=== PATIENT | female | born 1960 | race Caucasian/White ===

== ENCOUNTER 2016-08-29 07:21 | Emergency (ER) | payer BC ==
[2016-08-29 07:35] VITALS: BP 127/69
--- NOTE | 2016-08-29 08:00 | UC ---
Respiratory Complaint HPI - HPI Summary HPI Summary: The patient comes in today for: 1. Cough, body aches, Onset: One week ago. Palliative/provocative: Robitussin and ibuprofen helps. Quality: Dry, raspy. Region: Lungs, Severity: Sore throat, ear pain--6/10 Time: Constant. Associated symptoms: Fevers: 100. Rhinitis: Green material: Upper tooth pain: None. Sinus pressure: Present. Chest pain: None Dyspnea: Present-and with some wheezing. Dyspnea is present with exertion-- not now. * - History of Current Complaint Chief Complaint: UCRespiratory Stated Complaint: CONGESTION/EAR PAIN Time Seen by Provider: 08/29/16 07:51 Hx Obtained From: Patient - Allergies/Home Medications Allergies/Adverse Reactions: Allergies Allergy/AdvReac Type Severity Reaction Status Date / Time No Known Allergies Allergy Verified 08/29/16 07:29 Home Medications: Home Medications Ibuprofen TAB* [Advil TAB*] 400 mg PO Q6H PRN 08/29/16 [History Confirmed ] guaiFENesin LIQ* [Robitussin*] 10 ml PO Q4H PRN 08/29/16 [History Confirmed 10/10] PMH/Surg Hx/FS Hx/Imm Hx Previously Healthy: Yes Endocrine History Of: Denies: Diabetes, Thyroid Disease, Hyperthyroidism, Hypothyroidism, Dyslipidemia Cardiovascular History Of: Denies: Cardiac Disorders, Hypertension, Pacemaker/ICD, Myocardial Infarction , Congestive Heart Failure, Atrial Fibrillation, Deep Vein Thrombosis, Bleeding Disorders Respiratory History Of: Reports: Asthma - She has used inhalers before. Denies: COPD, Bronchitis, Pneumonia, Pulmonary Embolism GI/ History Of: Denies: Gastroesophageal Reflux, Ulcer, Gastrointestinal Bleed, Gall Bladder Disease, Kidney Stones, Diverticulitis, Renal Disease, Urosepsis Neurological History Of: Denies: TIA, CVA, Dementia, Seizures, Migraine Psychological History Of: Denies: Anxiety, Depression, Bipolar Disorder, Schizophrenia, Post Traumatic Stress Disorder Cancer History Of: Denies: Lung Cancer, Colorectal Cancer, Breast Cancer, Prostate Cancer, Cervical Cancer Other History Of: Negative For: HIV, Hepatitis B, Hepatitis C, Anticoagulant Therapy - Surgical History Surgical History: Yes Surgery Procedure, Year, and Place: Xs2 - Rt SHOULDER SURG. TUBAL LIGATION. CARPAL TUNNEL - Rt. Rt FOOT- FX & NERVE DAMAGE. BREAST IMPLANTS - Family History Known Family History: Negative: Cardiac Disease, Hypertension - Social History Occupation: Employed Full-time Alcohol Use: Occasionally Substance Use Type: None Smoking Status (MU): Former Smoker Type: Cigarettes Amount Used/How Often: 1 PACK PER WEEK Length of Time of Smoking/Using Tobacco: 20 Have You Smoked in the Last Year: Yes Household Exposure Type: Cigarettes - Immunization History Most Recent Influenza Vaccination: FALL 2015 Review of Systems Constitutional: Negative Skin: Negative Eyes: Negative ENT: Nasal Discharge Respiratory: Cough Cardiovascular: Negative Gastrointestinal: Negative Genitourinary: Negative All Other Systems Reviewed And Are Negative: Yes Physical Exam Triage Information Reviewed: Yes Appearance: Well-Appearing, No Pain Distress, Well-Nourished Vital Signs: Initial Vital Signs Temp 97.2 F 08/29/16 07:30 Pulse 62 08/29/16 07:30 Resp 18 08/29/16 07:30 BP 127/69 08/29/16 07:30 Pulse Ox 100 08/29/16 07:30 Vital Signs Reviewed: Yes Eyes: Positive: Conjunctiva Clear. Negative: Discharge ENT: Positive: Hearing grossly normal. Negative: Pharyngeal erythema, Nasal congestion, Nasal drainage, TM bulging, TM dull, TM red, Tonsillar swelling, Tonsillar exudate Dental: Negative: Gross Decay/Caries @, Dental Fracture @ Neck: Positive: Supple, Nontender, No Lymphadenopathy. Negative: Nuchal Rigidity Respiratory: Positive: Chest non-tender, Lungs clear - Patient does not take deep breaths as instructed., No respiratory distress, No accessory muscle use. Negative: Crackles, Wheezing Cardiovascular: Positive: RRR, No Murmur Abdomen Description: Positive: Nontender, No Organomegaly, Soft. Negative: Distended, Guarding Musculoskeletal: Positive: Strength Intact, ROM Intact Neurological: Positive: Alert, Muscle Tone Normal Psychological: Positive: Age Appropriate Behavior, Consolable Skin: Negative: rashes, breakdown UC Diagnostic Evaluation - Laboratory O2 Sat by Pulse Oximetry: 100 Respiratory Course/Dx - Differential Dx/Diagnosis Differential Diagnosis/HQI/PQRI: Bronchitis, Laryngitis, Sinusitis Provider Diagnoses: Bronchitis. Sinusitis Discharge - Discharge Plan Condition: Stable Disposition: HOME Patient Education Materials: Sinusitis (ED), Acute Bronchitis (ED) Referrals: Alicia Yun MD [Primary Care Provider] - 1 Week (Please see your primary care provider in about a week to see how well you are doing. If you get worse, please be seen sooner.)
[2016-08-29] MEDS ORDERED: Amoxicillin/Clavulanate TAB* 875 MG PO ONE (08:03)
== END 2016-08-29 08:13 | disposition home or self-care (01) ==
LOC: UCCORT 07:21
DX: J40 Bronchitis, not specified as acute or chronic (principal); J32.9 Chronic sinusitis, unspecified; Z87.891 Personal history of nicotine dependence
CPT/HCPCS: 99212; A9270-GY; G0463

== ENCOUNTER 2017-08-16 11:40 | Emergency (ER) | payer BC ==
[2017-08-16 13:30] VITALS: BP 136/82
--- NOTE | 2017-08-16 13:41 | UC ---
Throat Pain/Nasal Favian HPI - HPI Summary HPI Summary: Severe maxillary sinus pressure, more on the right than the left. red eyes with drainage, cough, low grade fever - History of Current Complaint Chief Complaint: UCGeneralIllness Stated Complaint: SINUSES Time Seen by Provider: 08/16/17 13:31 Hx Obtained From: Patient ?: No Onset/Duration: Sudden Onset, Lasting Days Severity: Severe Associated Signs & Symptoms: Positive: Dysphagia, Sinus Discomfort, Nasal Discharge, Fever - Allergies/Home Medications Allergies/Adverse Reactions: Allergies Allergy/AdvReac Type Severity Reaction Status Date / Time No Known Allergies Allergy Verified 08/16/17 13:30 PMH/Surg Hx/FS Hx/Imm Hx Previously Healthy: Yes Other History Of: Negative For: HIV, Hepatitis B, Hepatitis C, Anticoagulant Therapy - Surgical History Surgical History: Yes Surgery Procedure, Year, and Place: Xs2 - Rt SHOULDER SURG. TUBAL LIGATION. CARPAL TUNNEL - Rt. Rt FOOT- FX & NERVE DAMAGE. BREAST IMPLANTS - Family History Known Family History: Negative: Cardiac Disease, Hypertension - Social History Alcohol Use: Occasionally Substance Use Type: None Smoking Status (MU): Former Smoker Type: Cigarettes Amount Used/How Often: 1 PACK PER WEEK Length of Time of Smoking/Using Tobacco: 20 Have You Smoked in the Last Year: Yes Household Exposure Type: Cigarettes - Immunization History Most Recent Influenza Vaccination: [id number] Review of Systems Constitutional: Fever, Fatigue Skin: Negative Eyes: Drainage, Eye Redness ENT: Sore Throat, Nasal Discharge, Sinus Congestion, Sinus Pain/Tenderness Respiratory: Cough Cardiovascular: Negative Gastrointestinal: Negative Genitourinary: Negative Motor: Negative Neurovascular: Negative Neurological: Headache Psychological: Negative Is Patient Immunocompromised?: No All Other Systems Reviewed And Are Negative: Yes Physical Exam Triage Information Reviewed: Yes Appearance: Well-Nourished, Ill-Appearing, Pain Distress Vital Signs: Initial Vital Signs Temp 97.7 F 08/16/17 13:26 Pulse 62 08/16/17 13:26 Resp 16 08/16/17 13:26 BP 136/82 08/16/17 13:26 Pulse Ox 100 08/16/17 13:26 Vital Signs Reviewed: Yes Eyes: Positive: Conjunctiva Inflamed, Discharge ENT: Positive: Pharyngeal erythema - with exudate, Nasal congestion, Nasal drainage, TM bulging, Sinus tenderness Dental Exam: Normal Neck exam: Normal Neck: Positive: Supple, Nontender, No Lymphadenopathy Respiratory Exam: Normal Respiratory: Positive: Chest non-tender, Lungs clear, Normal breath sounds, Decreased breath sounds - upper right lobe Cardiovascular Exam: Normal Cardiovascular: Positive: RRR, No Murmur, Pulses Normal Abdominal Exam: Normal Abdomen Description: Positive: Nontender, No Organomegaly, Soft Bowel Sounds: Positive: Present Musculoskeletal Exam: Normal Neurological Exam: Normal Psychological Exam: Normal Skin Exam: Normal Throat Pain/Nasal Course/Dx - Course Course Of Treatment: hx obtained, exam performed, meds reviewed, treated for conjunctivitis and sinusitis - Differential Dx/Diagnosis Differential Diagnosis/HQI/PQRI: Influenza, Otitis Media, Pharyngitis, Sinusitis , URI Provider Diagnoses: sinusitis. conjunctivitis bilateral Discharge - Discharge Plan Condition: Stable Disposition: HOME Prescriptions: DOXYcycline CAP(*) [DOXYcycline 100MG CAP(*)] 100 mg PO BID #14 cap predniSONE TAB* [Deltasone TAB*] 40 mg PO DAILY #14 tab Patient Education Materials: Sinusitis (ED) Referrals: No Primary Care Phys,NOPCP [Primary Care Provider] - Additional Instructions: 1. Take the medication as prescribed. 2. Increase fluid intake and get plenty of rest 3. Ibuprofen and Tylenol for pain and fever. 4. Follow up with any worsening symtpoms.
== END 2017-08-16 13:48 | disposition home or self-care (01) ==
LOC: UCCORT 11:40
DX: J32.9 Chronic sinusitis, unspecified (principal); H10.9 Unspecified conjunctivitis; Z87.891 Personal history of nicotine dependence; Z72.89 Other problems related to lifestyle
CPT/HCPCS: 99212; G0463

== ENCOUNTER 2017-08-18 07:21 | Emergency (ER) | payer BC ==
[2017-08-18 07:32] VITALS: BP 136/63
[2017-08-18] MEDS ORDERED: LoraTADine TAB(NF) 10 MG TAB (AUTOSUB to CETIRIZINE) PO ONE (07:43)
--- NOTE | 2017-08-18 08:08 | UC ---
Skin Complaint HPI - HPI Summary HPI Summary: RASH / HIVES ALL OVER X 1 DAY WAS PLACED ON DOXY AND PREDNISONE 2 DAYS AGO FOR SINUSITIS RASH STARTED YESTERDAY , + ITCHY, NO COUGH, NO WHEEZING OR SOB - History of Current Complaint Chief Complaint: UCAllergicReaction Time Seen by Provider: 08/18/17 07:37 Stated Complaint: ALLERGIC REACTION Hx Obtained From: Patient Hx Last Menstrual Period: yrs Onset/Duration: Gradual Onset, Lasting Days - 1, Still Present Timing: Constant Onset Severity: Moderate Current Severity: Moderate Pain Intensity: 5 Pain Scale Used: 0-10 Numeric Location: Diffuse Character: Pruritus, Hives, Redness Aggravating Factor(s): Other - MEDICATIONS , DOXY OR PREDNISONE Alleviating Factor(s): Cold Associated Signs & Symptoms: Positive: Rash Related History: Recent change in medication - Allergy/Home Medications Allergies/Adverse Reactions: Allergies Allergy/AdvReac Type Severity Reaction Status Date / Time ? doxycycline Allergy Rash And Uncoded 08/18/17 07:58 Itching ? prednisone Allergy Rash And Uncoded 08/18/17 07:58 Itching Review of Systems Constitutional: Negative Skin: Rash Eyes: Negative ENT: Negative Respiratory: Negative Cardiovascular: Negative Gastrointestinal: Negative Genitourinary: Negative Is Patient Immunocompromised?: No All Other Systems Reviewed And Are Negative: Yes PMH/Surg Hx/FS Hx/Imm Hx Respiratory History: Asthma Other History Of: Negative For: HIV, Hepatitis B, Hepatitis C, Anticoagulant Therapy - Surgical History Surgical History: Yes Surgery Procedure, Year, and Place: Xs2 - Rt SHOULDER SURG. TUBAL LIGATION. CARPAL TUNNEL - Rt. Rt FOOT- FX & NERVE DAMAGE. BREAST IMPLANTS - Family History Known Family History: Negative: Cardiac Disease, Hypertension - Social History Alcohol Use: Occasionally Substance Use Type: None Smoking Status (MU): Former Smoker Type: Cigarettes Amount Used/How Often: 1 PACK PER WEEK Length of Time of Smoking/Using Tobacco: 20 Have You Smoked in the Last Year: Yes Household Exposure Type: Cigarettes - Immunization History Most Recent Influenza Vaccination: [id number] Physical Exam Triage Information Reviewed: Yes Appearance: Well-Appearing, No Pain Distress, Well-Nourished Vital Signs: Initial Vital Signs Temp 97.5 F 08/18/17 07:27 Pulse 68 08/18/17 07:27 Resp 24 08/18/17 07:27 BP 136/63 08/18/17 07:27 Pulse Ox 100 08/18/17 07:27 Vital Signs Reviewed: Yes Eye Exam: Normal Eyes: Positive: Conjunctiva Clear ENT: Positive: Normal ENT inspection, Hearing grossly normal, Pharynx normal Neck: Positive: Supple, Nontender, No Lymphadenopathy Respiratory: Positive: Chest non-tender, Lungs clear, Normal breath sounds Cardiovascular: Positive: RRR, No Murmur, Pulses Normal Musculoskeletal: Positive: Strength Intact, ROM Intact, No Edema Neurological: Positive: Alert, Muscle Tone Normal, Fatigued Skin: Positive: rashes - GENERALIZED MACULAR RASH Course/Dx - Diagnoses Provider Diagnoses: HIVES Discharge - Discharge Plan Condition: Stable Disposition: HOME Prescriptions: Amoxicillin/Clavulanate TAB* [Augmentin TAB 875*] 875 mg PO BID #20 tab Patient Education Materials: Antibiotic Medication Allergy (ED) Referrals: No Primary Care Phys,NOPCP [Primary Care Provider] - If Needed Additional Instructions: MOST LIKELY ALLERGIC REACTION TO DOXY OR ? PREDNISONE PLEASE STOP BOTH MEDICATIONS MAY TAKE ANTIHISTAMINE / BENADRYL OR LORATADIN FOR THE RASH AND ITCHINESS INCREASE FLUID / WATER FOLLOW UP NEEDED
== END 2017-08-18 07:52 | disposition home or self-care (01) ==
LOC: UCCORT 07:21
DX: L50.9 Urticaria, unspecified (principal)
CPT/HCPCS: 99212; A9270-GY; G0463

== ENCOUNTER 2018-02-24 17:12 | Emergency (ER) | payer BC ==
[2018-02-24 17:52] VITALS: BP 142/92
--- NOTE | 2018-02-24 18:01 | UC ---
Skin Complaint HPI - HPI Summary HPI Summary: pt is c/o a rash to her trunk and L upper thigh. it began about 1.5-2 weeks ago. it has a mild itch. tx with neosporin with no relief. no others with a rash. no current or recent illness. - History of Current Complaint Chief Complaint: UCSkin Time Seen by Provider: 02/24/18 17:51 Stated Complaint: RASH - TORSO Hx Obtained From: Patient Hx Last Menstrual Period: yrs Onset/Duration: Gradual Onset Timing: Constant Pain Intensity: 0 Aggravating Factor(s): Other - heat Alleviating Factor(s): Nothing Associated Signs & Symptoms: Negative: Fever - Allergy/Home Medications Allergies/Adverse Reactions: Allergies Allergy/AdvReac Type Severity Reaction Status Date / Time doxycycline Allergy Hives Verified 02/24/18 17:53 ? prednisone Allergy Rash And Uncoded 02/24/18 17:53 Itching Review of Systems Constitutional: Negative Skin: Rash Eyes: Negative ENT: Negative Respiratory: Negative Cardiovascular: Negative Gastrointestinal: Negative Genitourinary: Negative Motor: Negative Neurovascular: Negative Musculoskeletal: Negative Neurological: Negative Psychological: Negative Is Patient Immunocompromised?: No All Other Systems Reviewed And Are Negative: Yes PMH/Surg Hx/FS Hx/Imm Hx Previously Healthy: Yes Other History Of: Negative For: HIV, Hepatitis B, Hepatitis C, Anticoagulant Therapy - Surgical History Surgical History: Yes Surgery Procedure, Year, and Place: Xs2 - Rt SHOULDER SURG. TUBAL LIGATION. CARPAL TUNNEL - Rt. Rt FOOT- FX & NERVE DAMAGE. BREAST IMPLANTS - Family History Known Family History: Positive: Other - [place] Negative: Cardiac Disease, Hypertension - Social History Occupation: Employed Full-time Lives: Alone Alcohol Use: Occasionally Substance Use Type: None Smoking Status (MU): Former Smoker Type: Cigarettes Amount Used/How Often: 1 PACK PER WEEK Length of Time of Smoking/Using Tobacco: 20 Have You Smoked in the Last Year: Yes Household Exposure Type: Cigarettes - Immunization History Most Recent Influenza Vaccination: [id number] Vaccination Up to Date: Yes Physical Exam Triage Information Reviewed: Yes Appearance: Well-Appearing Vital Signs: Initial Vital Signs Temp 98 F 02/24/18 17:47 Pulse 76 02/24/18 17:47 Resp 16 02/24/18 17:47 BP 142/92 02/24/18 17:47 Pulse Ox 99 08/01/18 17:47 Vital Signs Reviewed: Yes Eyes: Positive: Conjunctiva Clear ENT: Positive: Pharynx normal, TMs normal. Negative: Nasal congestion, Nasal drainage Neck: Positive: Supple, Nontender, No Lymphadenopathy Respiratory: Positive: Lungs clear, Normal breath sounds Cardiovascular: Positive: RRR, No Murmur Abdomen Description: Positive: Nontender, No Organomegaly, Soft Bowel Sounds: Positive: Present Musculoskeletal: Positive: ROM Intact Neurological: Positive: Alert Psychological: Positive: Age Appropriate Behavior Skin Exam: Normal Skin: Positive: rashes - round to oval pink spots on trunk, some with very fine scale. no blistering and not petechial. they do bereket. Course/Dx - Course Course Of Treatment: no concern for bacterial infection or infestation. looks most c/w pityriasis rosea but tinea versicolor possible. given itch and fine scale, will tx with po steroid and selenium sulfide shampoo and close f/u pcp for recheck. BP mildly elevated and no hx HTN thus pt will have BP rechecked on f/u. - Diagnoses Provider Diagnoses: Acute rash Discharge - Sign-Out/Discharge Documenting (check all that apply): Patient Departure - Discharge Plan Condition: Stable Disposition: HOME Prescriptions: predniSONE TAB* [Deltasone 20 MG TAB*] 40 mg PO DAILY #10 tab Selenium Sulfide 180 ml TP DAILY 14 Days #1 shampoo Patient Education Materials: Acute Rash (ED), Pityriasis rosea (ED) Referrals: Alicia Yun MD [Primary Care Provider] - 7 Days Additional Instructions: DIAGNOSIS: ACUTE RASH. POSSIBLE PITYRIASIS - Billing Disposition and Condition Condition: STABLE Disposition: Home Attestation Statement User Type: Provider - I was available for consult. This patient was seen by the CELINE. The patient was not presented to, seen by, or examined by me. -Epi
== END 2018-02-24 18:15 | disposition home or self-care (01) ==
LOC: UCCORT 17:12
DX: R21 Rash and other nonspecific skin eruption (principal); Z87.891 Personal history of nicotine dependence; Z88.1 Allergy status to other antibiotic agents
CPT/HCPCS: 99212; G0463